=== PATIENT | female | born 1945 | race Caucasian/White ===

== ENCOUNTER → 2018-02-06 | Outpatient (CLI) | payer OTHER | LOC: BMCIMAGING 14:28 | PROVIDERS: ATTEND Internal Medicine | DX: Z12.31 Encounter for screening mammogram for malignant neoplasm of breast (principal); Z13.820 Encounter for screening for osteoporosis; M81.0 Age-related osteoporosis without current pathological fracture; E07.9 Disorder of thyroid, unspecified; Z78.0 Asymptomatic menopausal state ==

== ENCOUNTER 2018-10-08 11:21 | Outpatient (CLI) | payer OTHER ==
[2018-10-08] MEDS ORDERED: NS 1,000 ML IV SCH (12:30)
[2018-10-08] MEDS ORDERED: MIDAZOLAM 2 MG/2 ML VIAL IVP PRN (12:30)
[2018-10-08] MEDS ORDERED: MEPERIDINE 25 MG/ML SYR IVP PRN (12:30)
[2018-10-08] MEDS ORDERED: FLUMAZENIL 0.5 MG/5 ML MDV IVP PRN (12:30)
[2018-10-08] MEDS ORDERED: fentaNYL 100 MCG/2 ML INJ IVP PRN (12:30)
[2018-10-08] MEDS ORDERED: NALOXONE HCL 0.4 MG/ML INJ IVP PRN (12:30)
[2018-10-08] MEDS ORDERED: GADOBUTROL 10 ML VIAL IVP ONE (12:48)
--- NOTE | 2018-10-08 12:51 | PDGENHP ---
History & Physical Chief Complaint: MRI brain needed History of Present Illness: parkinson's dz pre DBS Cardiorespiratory Assessment: RRR, clear
--- NOTE | 2018-10-08 12:51 | PDPROPOC ---
Sedation Plan of Care Sedation Plan of Care: vital signs stable, mental status noted, patient educated of risks, benefits, alternatives, patient can tolerate sedation ASA Classification: ASA 2 Planned drugs: fentanyl, midazolam Mallampati Score: Class 1 Mallampati Reference Image: Patient passed 3-3-2 rule?: Yes
[2018-10-08 15:49] VITALS: BP 137/76
== END 2018-10-08 15:30 | disposition home or self-care (01) ==
LOC: FIMAGING 11:21
PROVIDERS: ATTEND Physician Assistant Surgical
DX: G31.9 Degenerative disease of nervous system, unspecified (principal); J34.1 Cyst and mucocele of nose and nasal sinus; G20 Parkinson's disease
CPT/HCPCS: 70552; A9585; J2250; J3010; 82565-PO; J2310

== ENCOUNTER 2018-11-13 05:31 | Inpatient (IN) | payer OTHER ==
--- NOTE | 2018-11-03 16:48 | GHP ---
[f rep st] PREOP HISTORY AND PHYSICAL DATE OF ADMISSION: 11/13/2018 HISTORY OF PRESENT ILLNESS: The patient is a 73-year-old female with Parkinson disease. She was william gnosed to have Parkinson's approximately 3-1/2 years ago. She did, however, begin having symptoms ap proximately a year prior to the time of her diagnosis. Her most bothersome symptom is her tremor. S he also has rigidity, stiffness, salivation, constipation, anosmia, and softened voice. She is takin g Sinemet but becomes symptomatic with this medication. She follows with Dr. Orantes. PAST MEDICAL HISTORY: Parkinson's, thyroid disorder. PAST SURGICAL HISTORY: Back surgery. SOCIAL HISTORY: Patient is retired and . Denies tobacco use. ALLERGIES: No known drug allergies. CURRENT HOME MEDICATIONS: Synthroid, estradiol, and Sinemet. REVIEW OF SYSTEMS: Negative except for what is mentioned in the HPI. FAMILY HISTORY: No pertinent neurosurgical family history. PHYSICAL EXAM: GENERAL: The patient appears to be in no apparent distress. Mood and affect are ana ropriate. Alert and oriented. HEENT: Pupils are equal and reactive. Extraocular movements are int act. Facial expression is symmetrical. MUSCULOSKELETAL: Muscle strength is well preserved in her u pper and lower extremities, 5/5, and sensation is intact to light touch. ASSESSMENT AND PLAN: In summary, the patient is a 73-year-old female with Parkinson disease. She mcallister s undergone a neuropsychological evaluation by Dr. Bales, as well on-off testing. She has been astrid med a suitable candidate to proceed with surgical intervention for her Parkinson disease with deep br ain stimulation. We will first begin by implanting the left STN lead for right body, and a month lat er, then proceed with right STN lead for the left body. The risks, benefits, and procedure were disc ussed in detail with the patient. The patient has elected to move forward with surgery and has maye d consents for left deep brain stimulation lead placement through the STN. /[id number]/MODL
[2018-11-13] MEDS ORDERED: CEFUROXIME 1,500 MG in NS 50 ML IV ONE (05:45)
[2018-11-13] MEDS ORDERED: LR 1,000 ML IV ONE (05:46)
[2018-11-13 06:17] LABS: PLATELET COUNT 266 10^3/uL (150-400)
[2018-11-13 06:25] LABS: INR 1.01 (0.83-1.16); PROTIME(PATIENT) 12.9 SEC (12.0-15.0)
[2018-11-13] MEDS ORDERED: CHLORHEXIDINE GLUC HIBICLENS 118 ML BTL TP ONE (06:26)
[2018-11-13] MEDS ORDERED: THROMBIN (BOVINE) 20,000 UNIT VIAL TP ONE (06:26)
[2018-11-13] MEDS ORDERED: BUPIVACAINE 0.25% 30 ML SDV ONE (06:26)
[2018-11-13] MEDS ORDERED: EPINEPHrine 1 MG/ML INJ ONE (06:27)
[2018-11-13] MEDS ORDERED: POVIDONE-IODINE 30 GM OINTTUBE TP ONE (06:27)
[2018-11-13] MEDS ORDERED: GENTAMICIN SULFATE 80 MG/2 ML VIAL ONE (06:27)
--- NOTE | 2018-11-13 06:58 | PDHPUP ---
History & Physical Update H&P update statement: This history and physical update is based on an assessment of the patient which was completed after admission or registration (within 24 hours), but prior to the surgery/procedure. H&P update: H&P reviewed & patient examined, no change in patient's condition since H&P completed
--- NOTE | 2018-11-13 07:05 | PDANEPAE ---
ANE History of Present Illness 73 yo for DBS ANE Past Medical History - Cardiovascular History Hx Hypertension: No Hx Arrhythmias: No Hx Chest Pain: No Hx Coronary Artery / Peripheral Vascular Disease: No Hx CHF / Valvular Disease: No Hx Palpitations: No - Pulmonary History Hx COPD: No Hx Asthma/Reactive Airway Disease: No Hx Recent Upper Respiratory Infection: No Hx Oxygen in Use at Home: No Hx Sleep Apnea: No Sleep Apnea Screening Result - Last Documented: Negative - Neurologic History Hx Cerebrovascular Accident: No Hx Seizures: No Hx Dementia: No Neurologic History Comment: parkinsons. tremor. dyskinesia - Endocrine History Hx Diabetes: No Endocrine History Comment: hypothyroidism - Renal History Hx Renal Disorders: No - Liver History Hx Hepatic Disorders: No - Neurological & Psychiatric Hx Hx Neurological and Psychiatric Disorders: No - Cancer History Hx Cancer: No - Congenital Disorder History Hx Congenital Disorders: No - GI History Hx Gastrointestinal Disorders: Yes Gastrointestinal History Comment: constipation. diarrhea - Other Health History Other Health History: rash on cheeks. bruises easily. wears glasses - Chronic Pain History Chronic Pain: No - Surgical History Prior Surgeries: back surgery in 2011. hysterectomy 1986 ANE Review of Systems Review of Systems: - Exercise capacity METS (RN): 4 METS ANE Patient History - Allergies Allergies/Adverse Reactions: No Known Allergies Allergy (Verified 11/02/18 16:01) - Home Medications Home medications: home medication list seen and reviewed Home Medications: Carbidopa-Levo 10-100 mg Odt 11/25/14 [Last Taken 11/12/18] Estradiol 11/25/14 [Last Taken 11/12/18] Synthroid 11/25/14 [Last Taken 11/12/18] Herbals/Supplements -Info Only 11/02/18 [Last Taken 11/03/18] - NPO status NPO Status: no food or drink >8 hours NPO Since - Liquids (Date): 11/13/18 NPO Since - Liquids (Time): 20:00 NPO Since - Solids (Date): 11/12/18 NPO Since - Solids (Time): 20:00 - Anes Hx Anes Hx: no prior problems - Smoking Hx Smoking Status: Never smoked - Family Anes Hx Family Hx Anesthesia Complications: none ANE Labs/Vital Signs - Labs Result Diagrams: 11/13/18 06:10 11/13/18 06:10 - Vital Signs Blood Pressure: 136/90 Heart Rate: 79 Respiratory Rate: 16 O2 Sat (%): 98 Height: 5 ft 7.5 in Weight: 47.174 kg ANE Physical Exam - Airway Neck exam: FROM Mallampati Score: Class 2 Mouth exam: normal dental/mouth exam - Pulmonary Pulmonary: no respiratory distress - Cardiovascular Cardiovascular: regular rate and rhythym - ASA Status ASA Status: II ANE Anesthesia Plan Anesthesia Plan: MAC
[2018-11-13] MEDS ORDERED: PROPOFOL/EMULSION 500 MG/50 ML BOTTLE IV ONE (07:27)
[2018-11-13] MEDS ORDERED: DEXMEDETOMIDINE HCL 400 MCG in NS 100 ML IV SCH (07:30)
[2018-11-13] MEDS ORDERED: fentaNYL 100 MCG/2 ML INJ ONE ×2 (07:50→11:44)
[2018-11-13] MEDS ORDERED: LIDOCAINE 2% JELLY 20 ML (UROJECT) ONE (07:53)
[2018-11-13] MEDS ORDERED: BISACODYL 10 MG SUPP PR PRN (09:03)
[2018-11-13] MEDS ORDERED: MAGNESIUM HYDROXIDE 30 ML UDCUP PO PRN (09:03)
[2018-11-13] MEDS ORDERED: LACTULOSE 20 GM/30 ML UDCUP PO PRN (09:03)
[2018-11-13] MEDS ORDERED: POLYETHYLENE GLYCOL 3350 17 GM PKT PO PRN (09:03)
[2018-11-13] MEDS ORDERED: ONDANSETRON 4 MG/2 ML VIAL IVP PRN ×2 (09:03→10:49)
[2018-11-13] MEDS ORDERED: ACETAMINOPHEN 325 MG TAB PO PRN ×2 (09:03→20:20)
[2018-11-13] MEDS ORDERED: HYDROCODONE/APAP 5/325 TAB PO PRN (09:06)
[2018-11-13] MEDS ORDERED: hydrALAZINE 20 MG/ML VIAL IVP PRN (09:06)
[2018-11-13] MEDS ORDERED: NS W/ 20 KCl/L 1,000 ML IV SCH (09:15)
--- NOTE | 2018-11-13 09:44 | PDMN ---
Medical Necessity Medical necessity: MCG: [facility] 1 day INPT only OP: crani- DBS auth- - [id number] APPROVED FOR INPT , [id number]
[2018-11-13] MEDS ORDERED: oxyCODONE IR 5 MG TAB PO PRN (10:49)
[2018-11-13] MEDS ORDERED: fentaNYL 100 MCG/2 ML INJ IVP PRN (10:49)
[2018-11-13] MEDS ORDERED: NALOXONE HCL 0.4 MG/ML INJ IVP PRN (10:49)
--- NOTE | 2018-11-13 11:17 | GOP ---
[f rep st] PREOP HISTORY AND PHYSICAL DATE OF ADMISSION: 11/13/2018 PREOPERATIVE DIAGNOSIS: Parkinson disease. POSTOPERATIVE DIAGNOSIS: Parkinson disease. PROCEDURE: 1. Right subthalamic nucleus deep brain stimulator lead placement with [employer] Jenny mead. 2. Impedances. CALL WORKER: Cortney Thorne PA-C. EBL: 10 mL. FLUIDS: 1200 mL crystalloid. URINE OUTPUT: None. DRAINS: None. SPECIMENS: None. COMPLICATIONS: None. INDICATIONS: This is a 73-year-old female with idiopathic Parkinson disease. She has been evaluated by a multidisciplinary team, found to be a good candidate for deep brain stimulator lead placement. We had placed the left deep brain stimulator lead first today. DESCRIPTION OF PROCEDURE: She was identified and consented. Sites were marked. Brought to the oper ating room, anesthetized under local with MAC. Hair was clipped with the OR clippers. Skin was isabel nsed with ChloraPrep. Pin sites were anesthetized with 0.25% Marcaine with epinephrine using povidon e iodine ointment on the pin sites. The Leksell frame was placed stereotactically. We then performe d a stereotactic spin with the O-arm to merge with the preoperative plan in the S8 frame link softwar e with an ACPC distance of 25.7, a target of X of -10.44, a Y of -2.76, a Z of -5.16. The entry poin t was an X of -44.11, Y of 35.93, Z of 59.2. This corresponded to 27.6 degrees off midsagittal, 59 d egrees off midaxial. This corresponded to Leksell frame coordinates of X of 113.5, Y of 98, a Z of 1 01, ring of 64 degrees, and arc 113.4 degrees. She was prepped and draped in the usual sterile fashi on. All Leksell frame coordinates were set and triple checked by all providers in the room. We marked the incision site with the cannula, then anesthetized a half-case incision, made a half-moo n incision with a 10 blade, elevated the periosteum with a periosteal elevator, used Layo clips, and then tunneled over to the right as we will place a right-sided generator ultimately. We then marked the bone incision, performed a fixed wing pilot hole, then a 14 mm bur hole, waxed the edges. Verified the bur hole was in the appropriate position. Placed the locking mechanism, screwed it into place, verified it clipped and locked, and opened the dura with an 11 blade. Introduced the cannula and internal st ylet, placed Gelfoam and DuraSeal around it. Performed microelectrode recordings. At this point in time, it was required to have an executive chef assistant as one person needed to remain scrubbed to manipulate the drive and the other person for testing. Please refer to HECTOR dictation by Cortney Thorne PA-C. We got good STN with motor driving at 3 above, out of acinar 0.14 above target. We macrostimmed and got good effect with no side effects. Elected to leave the lead here at approximately 1.14 above target based on the lead configuration. We then measured and placed the lead, tested the lead, and got low to no side effects with good stimulation effect. Took an x-ray with the bomb sites verified within the appropriate position. Performed a Stealth ster eotactic spin. We did have some impedance issues on the first 2 leads so this was the 3rd lead we pl aced. With the spin, took bomb sites. Placed the locking mechanism, clipped and locked it, removed the stylet. At that point, the lead had migrated so we completely removed the clip and we removed th e stylet. We measured and replaced the lead. Took an x-ray again. Had not migrated from the origin al position. Placed the locking mechanism, clipped and locked it, removed the stylet. It still had not migrated. Brought the lead down and out, placed it into the groove. It still had not migrated. Placed the cap. It still had not migrated under x-ray. Placed the end cap, locked into place with a torque wrench, and tunneled to the right, coiling the lead posterior and around the incision. The lead remained in its original position. Copiously irrigated with over 1 L of gentamicin-infused sali ne. Attempted to closed the galea with 2-0 Vicryl pop-offs. However, her galea was so thin, we requ ired a primary nylon closure. The wound was dressed with Xeroform and Telfa stapled down. The frame was removed. Head was wrapped. Patient tolerated the procedure well. No complications. /[id number]/MODL
--- NOTE | 2018-11-13 11:22 | GPN ---
[f rep st] PROCEDURE NOTE DATE OF PROCEDURE: 11/13/2018 PREPROCEDURE DIAGNOSIS: Parkinson disease. POSTPROCEDURE DIAGNOSIS: Parkinson disease. PROCEDURE PERFORMED: Intraoperative functional subcortical mapping by microelectrode recording and stimulation. COMPLICATIONS: None. INDICATIONS FOR PROCEDURE: Determination of optimal electrode lead placement for deep brain stimulation therapy for Parkinson disease to the STN. PROCEDURE: Following the incision on the left, a roro hole was drilled. The arc was then arranged with the following coordinates: X 113.5, Y 98.0, Z 101.0 , ring 64.0, arc 113.4. We elected to proceed with microelectrode recording with a center tract. There was evidence of cell bursts above target at 12.7, 10.6, and 9.2. There was evidence of entering STN at 5.0 above target with change in recording with elbow extension at 3.0 above target. We entered SNR at 0.14 above target. We then proceeded with macro stimulation at 3 above target. Patient had no side effects up to 4.0 with improved bradykinesia. With this microelectrode recording, we elected to place the lead at its location using the center tract with the bottom of the lead at 1.14 above target. Proceeding with test stimulation, patient had no side effects up to 3.0 with a slight improvement in bradykinesia at 1- and level 2+ . At level 2- and level 3+, patient had no side effects up to 2.0 with improved bradykinesia. At level 3- and level 4+ , patient had no side effects up to 2.0 with improved bradykinesia. At the level 4- and level 3+, patient had no side effects up to 2.0. With this microelectrode recording, as well as test stimulation, we elected to place the lead at this location with the bottom of the lead at 1.14 above target. The patient tolerated the surgery well. /[id number]/MODL MTDD
--- NOTE | 2018-11-13 11:35 | POSTOPPROG ---
Post Op Note Date of Operation: 11/13/18 Surgeon: Hellen Ricks Site Surveyor: Priscilla Thorne PA-C Anesthesia: IV Sedation, Local (Specify) Pre-op Diagnosis: Parkinson's disease Post-op Diagnosis: Parkinson's disease Procedure: Left STN DBS lead placement Inf/Abcess present in the surg proc area at time of surgery?: No Depth: Deep Incisional (Fascial) EBL: Minimal Plan Plan: 73 yo female s/p left STN DBS lead placement for Parkinson's - neuro checks - pain control - postop head CT pending - maintain SBP < 140 - PT/OT - plan for home tomorrow Exam Patient seen in recovery Awake. Alert Following commands Incision with dressing c/d/i
--- NOTE | 2018-11-13 12:26 | POSTANESTH ---
Post Anesthetic Evaluation Cardiovascular Status: Normal, Stable Respiratory Status: Normal, Stable Level of Consciousness/Mental Status: Can Participate in Eval Pain Control: Adequate, Prn Tx Ordered Nausea/Vomiting Control: Adequate, Prn Tx Ordered Complications Possibly Related to Anesthesia: None Noted
--- NOTE | 2018-11-13 16:56 | ASMTCMCOM ---
CM Note CM Note Notes: Pt is s/p crani deep brain stimulation for Parkinson's Disease. PT/OT evals are pending. Pt lives in [place]. CM will follow for any d/c needs. D/C plan: TBD Date Signed: 11/13/2018 04:55 PM Electronically Signed By:NATY Zimmerman
[2018-11-13] MEDS: CEFUROXIME 1,500 MG in NS 50 ML IV SCH (17:57)
[2018-11-13] MEDS: SENNOSIDES/DOCUSATE SODIUM TAB PO SCH (20:18)
[2018-11-13] MEDS ORDERED: ESTRADIOL 0.5 MG TAB PO SCH (21:00)
[2018-11-13] MEDS: CARBIDOPA/LEVODOPA 25 MG/100 MG TAB PO SCH (23:19)
[2018-11-14] MEDS: CEFUROXIME 1,500 MG in NS 50 ML IV SCH (00:12)
[2018-11-14] MEDS ORDERED: LEVOTHYROXINE 75 MCG TAB PO SCH (06:00)
[2018-11-14] MEDS: CARBIDOPA/LEVODOPA 25 MG/100 MG TAB PO SCH ×2 (06:02→10:26)
[2018-11-14 07:38] VITALS: BP 133/73
--- NOTE | 2018-11-14 09:42 | NEUSURGPN ---
Assessment/Plan: Plan Plan: 73 yo female s/p left STN DBS lead placement for Parkinson's - Neuro:Doing well, denies headache, ambulating well - pain control - postop head CT looks good, no acute bleed -May remove dressing -May shower tomorrow 11/15 - maintain SBP < 140 - PT/OT - plan for home this afternoon S: Patient doing well, denies headache. Eager to go home. Objective: Awake. Alert Dressing in place CN II-XII grossly intact PERRL, EOMI Following commands BUE/BLE 12/20 SILT Catheter Insertion Date: 11/13/18 - Physician Discussed Patient with DrPrabhu: [facility] Physical Exam - Vitals, I&O, Labs I and O 11/13/18 11/14/18 11/15/18 05:59 05:59 05:59 Intake Total 2965 Output Total 1700 Balance 1265 Weight 47.174 kg Intake: Oral (ml) 610 IV Intake (ml) 1300 IV Infused (ml) 1055 Cefuroxime 1,500 mg In Ns 50 50 ml @ 200 mls/hr IV Q8H ALESIA Rx#:[id number] NS W/ 20 KCl/L 1,000 ml @ 1005 75 mls/hr IV CONT ALESIA Rx #:[id number] Output: Urine (ml) 1650 Catheter 1650 Estimated Blood Loss (ml) 50 Other: Intake Quantity Yes Sufficient Vital Signs Temp Pulse Resp BP Pulse Ox 36.7 C 73 18 133/73 H 93 11/14/18 07:37 11/14/18 07:37 11/14/18 07:37 11/14/18 07:37 11/14/18 07:37 Laboratory Results 11/13/18 06:10 11/13/18 06:10 ICD10 Worksheet Patient Problems: Problems Problem Status Onset Parkinsons Acute - ICD10 Problem Qualifiers (1) Parkinsons
--- NOTE | 2018-11-14 10:12 | ASDISCHSUM ---
Discharge Information Plan Status:Home with No Needs Medically Cleared to Leave: Discharge Date: D/C Disposition:Home Health Service [facility] D[facility]C Disposition:Home, Routine, Self-Care Projected Discharge Date: Transportation at D/C:Family Discharge Delay Reason: Follow-Up Date: Discharge Slot: Final Diagnosis: Placement Information Patient Contact Information Contact Name:JAVONDENNISWOLFKATJA Relationship:Benjy Address: [phone] City:[place] Alternate Phone: [facility] Code:[place] Email: Financial Information Financial Class:Medicare Advantage Plans Primary Plan Desc:[facility] ADVANTAGE PLANS Primary Plan Number:[id number] Secondary Plan Desc: Secondary Plan Number: Assessment Information [facility] CM Progress Note CM Note CM Note Notes: Pt is s/p crani deep brain stimulation for Parkinson's Disease. PT/OT evals are pending. Pt lives in [place]. CM will follow for any d/c needs. D/C plan: TBD Date Signed: 11/13/2018 04:55 PM Electronically Signed By:NATY Zimmerman LACE LACE Length of stay for Answers: 1 day current admission Acuity / Level of Answers: Yes Care: Did the patient have an inpatient admission? # of Emergency department Answers: 0 visits in the last 6 months Score: 4 Date Signed: 11/14/2018 10:11 AM Electronically Signed By:Wendy Reddy Intervention Information
[2018-11-14] MEDS: SENNOSIDES/DOCUSATE SODIUM TAB PO SCH ×2 (10:26→10:33)
[2018-11-16] MEDS ORDERED: ENOXAPARIN 40 MG/0.4 ML SYR SC SCH (09:00)
--- NOTE | 2018-11-19 09:40 | GDS ---
[f rep st] DISCHARGE SUMMARY ADMISSION DIAGNOSIS: Parkinson disease. DISCHARGE DIAGNOSIS: Parkinson disease. PROCEDURE: Left subthalamic nucleus deep brain stimulator lead placement for Parkinson. CONSULTS: Physical and Occupational therapy. HOSPITAL COURSE: The patient is a 73-year-old female who presented to the hospital to proceed with D BS surgery for treatment for Parkinson disease. She underwent surgery by Dr. Hellen Ricks on October 17 with placement of the left STN deep brain stimulator lead. She tolerated the surgery well withou t any complications. She was transferred to the floor. Postop head CT showed no acute intracranial hemorrhage. On the following day, she was tolerating a diet, voiding without difficulty, pain contro lled, and she was medically stable, and she was deemed suitable for discharge. She was discharged to home on November 14. DISCHARGE MEDICATIONS: [place] 5/325 mg take as needed as needed for pain. DISCHARGE INSTRUCTIONS: Patient was asked to refrain from showering for 3 days. She needs to avoid strenuous activity, such as lifting more than 10 pounds. The patient will follow up with Dr. Hellen betancourt in 2 weeks. /[id number]/MODL
== END 2018-11-14 12:10 | disposition home or self-care (01) | DRG 27 ==
LOC: F3N 05:31 → EDSTATUS 07:15 → F3N 12:22
PROVIDERS: ADMIT Neurological Surgery; ATTEND Neurological Surgery
PROC: 00H00MZ Insertion of Neurostimulator Lead into Brain, Open Approach (ICD-10-PCS; principal; 2018-11-13 07:15)
DX: G20 Parkinson's disease (principal); E03.9 Hypothyroidism, unspecified
CPT/HCPCS: 97161-GP; 97165-GO; C1713; C1778; C1883; J0171; J0360; J0697; J1580; J2405; J2704; J3010

== ENCOUNTER 2018-12-11 05:54 | Inpatient (IN) | payer OTHER ==
[2018-12-11] MEDS ORDERED: CEFUROXIME 1,500 MG in NS 50 ML IV ONE (06:00)
[2018-12-11] MEDS ORDERED: LR 1,000 ML IV ONE (06:10)
[2018-12-11] MEDS ORDERED: THROMBIN (BOVINE) 20,000 UNIT VIAL TP ONE (06:37)
[2018-12-11] MEDS ORDERED: CHLORHEXIDINE GLUC HIBICLENS 118 ML BTL TP ONE (06:37)
[2018-12-11] MEDS ORDERED: POVIDONE-IODINE 30 GM OINTTUBE TP ONE (06:38)
[2018-12-11] MEDS ORDERED: BUPIVACAINE/EPI 0.25% 30 ML SDV ONE (06:38)
[2018-12-11] MEDS ORDERED: GENTAMICIN SULFATE 80 MG/2 ML VIAL ONE (06:38)
--- NOTE | 2018-12-11 06:49 | PDANEPAE ---
ANE History of Present Illness here for DBS placement ANE Past Medical History - Cardiovascular History Hx Hypertension: No Hx Arrhythmias: No Hx Chest Pain: No Hx Coronary Artery / Peripheral Vascular Disease: No Hx CHF / Valvular Disease: No Hx Palpitations: No - Pulmonary History Hx COPD: No Hx Asthma/Reactive Airway Disease: No Hx Recent Upper Respiratory Infection: No Hx Oxygen in Use at Home: No Hx Sleep Apnea: No Sleep Apnea Screening Result - Last Documented: Negative - Neurologic History Hx Cerebrovascular Accident: No Hx Seizures: No Hx Dementia: No Neurologic History Comment: parkinson's 5-6 years, tremor, dyskinesia - Endocrine History Hx Diabetes: Yes Endocrine History Comment: hypothyroid - Renal History Hx Renal Disorders: No - Liver History Hx Hepatic Disorders: No - Neurological & Psychiatric Hx Hx Neurological and Psychiatric Disorders: No Neurological / Psychiatric History Comment: parkinson's - Cancer History Hx Cancer: No - Congenital Disorder History Hx Congenital Disorders: No - GI History Hx Gastrointestinal Disorders: Yes Gastrointestinal History Comment: occ diarrhea - Other Health History Other Health History: osteo arthritis, cervical degenerative disk disease, edema , rash on cheeks, bruises easily - Chronic Pain History Chronic Pain: Yes (neck) - Surgical History Prior Surgeries: left dbs lead placement 11/13/18. back surgery in 2011, hysterectomy 1986 ANE Review of Systems Review of systems is: negative Review of Systems: - Exercise capacity Exercise capacity: >=4 METS METS (RN): 3 METS ANE Patient History - Allergies Allergies/Adverse Reactions: No Known Allergies Allergy (Verified 12/07/18 09:45) - Home Medications Home medications: home medication list seen and reviewed Home Medications: Carbidopa/Levodopa 25/100Mg [Sinemet 25/100 MG (*)] 2 tab PO Q4HRS WHILE AWAKE 11/25/14 [Last Taken 12/10/18 20:00] Estradiol [Estradiol 1 MG (*)] 0.5 mg PO HS 11/25/14 [Last Taken 12/10/18 21:00] Levothyroxine [Synthroid 75 mcg (*)] 75 mcg PO DAILY06 11/25/14 [Last Taken 21:00] Acetaminophen [Tylenol 325mg (*)] 325 mg PO DAILY PRN 11/13/18 [Last Taken 12/10 15:00] - NPO status NPO Status: no food or drink >8 hours NPO Since - Liquids (Date): 12/10/18 NPO Since - Liquids (Time): 21:00 NPO Since - Solids (Date): 12/10/18 NPO Since - Solids (Time): 21:00 - Smoking Hx Smoking Status: Never smoked - Family Anes Hx Family Hx Anesthesia Complications: none ANE Labs/Vital Signs - Vital Signs Vital Signs: reviewed preoperatively; see RN documention for details Blood Pressure: 165/90 Heart Rate: 78 Respiratory Rate: 16 O2 Sat (%): 95 Height: 171.45 cm Weight: 47.627 kg ANE Physical Exam - Airway Neck exam: FROM Mallampati Score: Class 1 Mouth exam: normal dental/mouth exam - Pulmonary Pulmonary: no respiratory distress - Cardiovascular Cardiovascular: regular rate and rhythym - ASA Status ASA Status: II ANE Anesthesia Plan Anesthesia Plan: GA with mask Lines/Monitors: arterial line
[2018-12-11] MEDS ORDERED: DEXMEDETOMIDINE HCL 400 MCG in NS 100 ML IV SCH (07:00)
[2018-12-11] MEDS ORDERED: PROPOFOL/EMULSION 500 MG/50 ML BOTTLE IV ONE ×2 (07:16→08:48)
[2018-12-11] MEDS ORDERED: LABETALOL HCL 5 MG/ML 20 ML MDV IVP PRN (08:30)
[2018-12-11] MEDS ORDERED: ONDANSETRON 4 MG/2 ML VIAL IVP PRN ×2 (08:30→08:57)
[2018-12-11] MEDS ORDERED: ALBUTEROL 3 ML DEYVIAL IH PRN (08:30)
[2018-12-11] MEDS ORDERED: NALOXONE HCL 0.4 MG/ML INJ IVP PRN (08:30)
[2018-12-11] MEDS ORDERED: LR 500 ML IV PRN (08:30)
[2018-12-11] MEDS ORDERED: fentaNYL 100 MCG/2 ML INJ IVP PRN (08:30)
[2018-12-11] MEDS ORDERED: HYDROmorphONE/DILAUDID 1 MG/ML INJ IVP PRN (08:30)
[2018-12-11] MEDS ORDERED: DEXAMETHASONE 4 MG/ML VIAL IVP PRN (08:30)
[2018-12-11] MEDS ORDERED: MAGNESIUM HYDROXIDE 30 ML UDCUP PO PRN (08:57)
[2018-12-11] MEDS ORDERED: BISACODYL 10 MG SUPP PR PRN (08:57)
[2018-12-11] MEDS ORDERED: LACTULOSE 20 GM/30 ML UDCUP PO PRN (08:57)
[2018-12-11] MEDS ORDERED: ACETAMINOPHEN 325 MG TAB PO PRN (08:57)
[2018-12-11] MEDS ORDERED: POLYETHYLENE GLYCOL 3350 17 GM PKT PO PRN (08:57)
[2018-12-11] MEDS ORDERED: HYDROCODONE/APAP 5/325 TAB PO PRN (09:00)
[2018-12-11] MEDS ORDERED: NS W/ 20 KCl/L 1,000 ML IV SCH (09:00)
[2018-12-11] MEDS ORDERED: hydrALAZINE 20 MG/ML VIAL IVP PRN (09:00)
[2018-12-11] MEDS ORDERED: AVITENE POWDER 1 GM JAR TP ONE (09:03)
--- NOTE | 2018-12-11 11:23 | GOP ---
[f rep st] PREOP HISTORY AND PHYSICAL DATE OF ADMISSION: 12/11/2018 PREOPERATIVE DIAGNOSIS: Parkinson disease. POSTOPERATIVE DIAGNOSIS: Parkinson disease. PROCEDURE: 1. Left deep brain stimulator lead placement with a [employer] directional lead. 2. Stealth. SURGEON: Hellen Ricks DO. AXLE AND FRAME MECHANIC: Cortney Thorne PA-C. EBL: 20 mL. FLUIDS: 1100 mL crystalloid. URINE OUTPUT: Not recorded. DRAINS: None. SPECIMENS: None. COMPLICATIONS: None. INDICATIONS: This is a 73-year-old female who has her right deep brain stimulator lead placed, and r eturns for the left deep brain stimulator lead placement for her Parkinson disease with [employer] directional lead. DESCRIPTION OF PROCEDURE: She was identified, consented. Sites were marked. Brought to the operati ng room. Anesthetized under local with MAC. Hair was clipped with the OR clippers. Head was cleans ed with ChloraPrep, placing povidone iodine on the pin sites, and anesthetizing the pin sites with 0. 5% Marcaine with epinephrine. We placed the [place] frame stereotactically, performed a stereotactic spin with the O-arm 2 and the localizer box, merging it with the preoperative plan in the Nano[employer] 8 frame link software. We then mirrored the lead on her opposite side, and the coordinates were an ACP C distance of 26.37, an X of 10.37, a Y of -3.07, a Z of -3.64, and entry point of X of 39.650, Y of 35.53, and Z of 65.22. This corresponded to 23 degrees off midsagittal and 60.7 degrees off midaxial . This corresponded to Leksell frame coordinates of an X of 91, a Y of 100.5, a Z of 99.5, a ring of 69 degrees, and an arc of 68.4 degrees. She was prepped and draped in the usual sterile fashion. T hese were set and triple checked by all providers in the room. We then marked a half-case shaped inc ision using the cannula, and this was anesthetized with 0.5% Marcaine with epinephrine. Incision was made with a 10 blade, and the periosteum was elevated with periosteal elevator. We then marked the bone incision using the cannula, and then performed a towboat pilot hole, then a 14 mm bur hole bur. Meticul ous hemostasis was obtained, and the bone edges were waxed. We then verified it was in good position , and then placed the lead locking device and verified that it clipped and locked. I screwed it down with the screws that were available and verified that it clipped and locked. We then opened the dur a sharply with an 11 blade, and inserted the cannula and stylet single tract, placed Gelfoam and Dura Seal, and placed a microelectrode. Please refer to dictation by Cortney Thorne for microelectrode r ecording. Cortney Thorne was required for assistance in this situation as 1 person needed to remain scrubbed to manipulate the lead and 1 person needed to remain unscrubbed for HECTOR. We performed HECTOR. We got some stimulus about 12 above, however, we got clearly into the STN at 3-1/2 above target and out approximately 1.3 mm below target. She was significantly sedated despite waiting a market amoun t, so testing was somewhat difficult. However, we did macro stim in the middle of the STN, and got n o side effects. Elected to place the lead here with the bottom of the bottom contact at approximatel y 1 mm below target. This was driven. The microelectrode was removed. The lead was measured and ma rked in place. We then tested each contact. All impedances were good with the exception of the 3 mcallister d a slightly high tissue impedance that was decreasing, and expect that this is a true tissue impedan ce. We then tested each of the contacts. We had low to no side effects to the extent that we could test for stimulation effect. We were able to get some improvement in bradykinesia. There was no lucinda mor to test on this side. At that point in time, we elected to leave the lead here, took an an x-ray with the bomb sites. We then performed a stereotactic spin, merging into the Stealth S8, and we had excellent accuracy with almost no significant deviation. We then retracted the stylet, locked the c lipping mechanism, and brought the internal stylet out, brought the lead down and out, placing it int o the groove, placing the cap, took another x-ray. It had not migrated. Placed the cap over the rupali d extension tip, and locked into place with a torque wrench tunneling a posterior, and putting it nex t to the lead that had been tunneled over from the other side, coiling the wires posterior and around , the incision copiously irrigated with over a liter of gentamicin-infused saline. Closed the galea with 2-0 Vicryl pop-offs. The skin was closed with 3-0 running nylon. The wound was dressed with Xe roform and Telfa. We then removed the frame. Head was wrapped, and the patient tolerated procedure well. No complications. /[id number]/MODL
[2018-12-11] MEDS ORDERED: fentaNYL 100 MCG/2 ML INJ ONE (11:41)
[2018-12-11] MEDS ORDERED: hydrALAZINE 20 MG/ML VIAL ONE (12:02)
--- NOTE | 2018-12-11 12:03 | PDMN ---
Medical Necessity Medical necessity: Pt meets inpt criteria per MD order and Neurosurgery GRG, [facility] IP only list, implantation of neurostimulator electrode. 73 y/o w/Parkinson's disease admitted for L deep brain stimulator lead placement and post-op care. R deep brain stimulator placed 11/13/18. AUTH# [id number] pre-approved for inpt.
[2018-12-11] MEDS: SENNOSIDES/DOCUSATE SODIUM TAB PO SCH ×2 (12:56→21:38)
--- NOTE | 2018-12-11 13:24 | POSTOPPROG ---
Post Op Note Date of Operation: 12/11/18 Surgeon: Hellen Ricks Architect Internship: Cortney Thorne PA-C Anesthesiologist: Dr. Rosas Anesthesia: IV Sedation, Local (Specify) Pre-op Diagnosis: Parkinson's Post-op Diagnosis: Parkinson's Procedure: Right STN DBS lead placement Inf/Abcess present in the surg proc area at time of surgery?: No Depth: Superfical (Skin SQ) EBL: Minimal Plan Plan: 73 yo female s/p right STN DBS lead placement for Parkinson's - neuro checks - pain control - postop head CT stable - maintain SBP < 140 - PT/OT - plan to discharge home tomorrow
--- NOTE | 2018-12-11 14:14 | GPN ---
[f rep st] PROCEDURE NOTE DATE OF PROCEDURE: 12/11/2018 PREPROCEDURE DIAGNOSIS: Parkinson disease. POSTPROCEDURE DIAGNOSIS: Parkinson disease. PROCEDURE PERFORMED: Intraoperative functional subcortical mapping by microelectrode recording and s timulation. COMPLICATIONS: None. INDICATIONS FOR PROCEDURE: Determination of optimal electrode lead placement for deep brain stimulat ion therapy for Parkinson disease to the STN. DESCRIPTION OF PROCEDURE: Following the incision on the right, a roro hole was drilled. The arc was then arranged with the following coordinates: X 91, Y 100.5, Z 99.5, ring 69.0, arc of 68.4. We el ected to proceed with microelectrode recording with a center tract. There was evidence of cell burst s above target at 19,17, 15, and 14. There was evidence of entering STN at 3.5 above target and exit ing STN at 1.3 below target. We then proceeded with macro stimulation at 1 above target and the aleshia ent experienced no side effects up to 4.0. We then elected to proceed with placement of the lead and proceed with test stimulation. At level 1-, 2+, patient had no side effects up to 3.0. At level 2- , 3+, patient had no side effects up to 3.0 with some improved bradykinesia. At level 3-, 4+, patien t had no side effects up to 3.0 with improved bradykinesia. At level 4-, 3+, patient had no side eff ects up to 3.0. With this microelectrode recording, as well as test stimulation, we elected to place the lead at this location with the bottom of the lead at 1 below target. The patient tolerated the surgery well without complication and was transferred to the floor.. /[id number]/MODL
[2018-12-11] MEDS: CEFUROXIME 1,500 MG in NS 50 ML IV SCH ×2 (14:19→21:41)
[2018-12-11] MEDS: CARBIDOPA/LEVODOPA 25 MG/100 MG TAB PO SCH ×3 (14:19→21:38)
[2018-12-11] MEDS ORDERED: ESTRADIOL 1 MG TAB PO SCH (21:00)
[2018-12-12] MEDS: CARBIDOPA/LEVODOPA 25 MG/100 MG TAB PO SCH ×3 (06:16→11:24)
[2018-12-12] MEDS: LEVOTHYROXINE 75 MCG TAB PO SCH ×2 (06:16→07:00)
--- NOTE | 2018-12-12 07:46 | SOAPPROG ---
SOAP Progress Note Assessment/Plan: Assessment: 73 yo F POD #1 DBS lead placement Plan: neuro: stable episode of confusion that resolved this morning Head CT 12/12 w/o hemorrhage, stable pneumocephalus PT/OT ok to dc when dizzyness improved please call with neuro changes discussed with Dr Sheehan 12/12/18 07:44 Subjective: mild headache, no N/V. no weakness. Objective: Vital Signs Temp Pulse Resp BP Pulse Ox 36.4 C 70 16 141/95 H 95 12/12/18 07:02 12/12/18 07:02 12/12/18 07:02 12/12/18 07:02 12/12/18 07:02 12/11/18 12/12/18 12/13/18 05:59 05:59 05:59 Intake Total 1570 50 Output Total 820 Balance 750 50 AAOX4, +FC PERRL, EOMI, no facial droop 5/5 + light touch C/D/I ICD10 Worksheet Patient Problems: Problems Problem Status Onset Parkinsons Acute
[2018-12-12] MEDS: SENNOSIDES/DOCUSATE SODIUM TAB PO SCH (08:13)
[2018-12-12 13:20] VITALS: BP 110/64
--- NOTE | 2018-12-12 13:26 | ASMTLACE ---
LACE Length of stay for Answers: 2 days current admission Acuity / Level of Answers: Yes Care: Did the patient have an inpatient admission? Comorbidities - select Answers: Diabetes (uncontrolled or all that apply controlled) Opioid dependence / Chronic pain Other Notes: Parkinson's disease # of Emergency department Answers: 0 visits in the last 6 months Score: 11 Date Signed: 12/12/2018 01:25 PM Electronically Signed By:NATY Leon
--- NOTE | 2018-12-12 14:42 | ASMTCMCOM ---
CM Note CM Note Notes: Pt had DBS placement, has had R DBS placement before. Pt has family local and resides alone. Pt medically stable for d/c, no CM d/c needs identified. Date Signed: 12/12/2018 02:42 PM Electronically Signed By:NATY Leon
== END 2018-12-12 13:24 | disposition home or self-care (01) | DRG 27 ==
LOC: FSGY 05:54 → F3E 08:57 → F3N 12:50
PROVIDERS: ADMIT Neurological Surgery; ATTEND Neurological Surgery
PROC: 00H00MZ Insertion of Neurostimulator Lead into Brain, Open Approach (ICD-10-PCS; principal; 2018-12-11 07:30)
DX: G20 Parkinson's disease (principal); E03.9 Hypothyroidism, unspecified
CPT/HCPCS: 97165-GO; C1713; C1778; C1883; J0360; J0697; J1580; J2405; J2704; J3010

== ENCOUNTER 2019-01-01 05:42 | Day surgery (SDC) | payer OTHER ==
[2019-01-01] MEDS ORDERED: ACETAMINOPHEN 500 MG TAB PO ONE (05:56)
[2019-01-01] MEDS ORDERED: ceFAZolin 2 GM/DEXTROSE 100 ML IV ONE (05:56)
[2019-01-01] MEDS ORDERED: LR 1,000 ML IV ONE (05:57)
--- NOTE | 2019-01-01 06:53 | PDANEPAE ---
ANE History of Present Illness For stage 2 deep brain stimulator implant for Parkinson ANE Past Medical History - Cardiovascular History Hx Hypertension: No Hx Arrhythmias: No Hx Chest Pain: No Hx Coronary Artery / Peripheral Vascular Disease: No Hx CHF / Valvular Disease: No Hx Palpitations: No - Pulmonary History Hx COPD: No Hx Asthma/Reactive Airway Disease: No Hx Recent Upper Respiratory Infection: No Hx Oxygen in Use at Home: No Hx Sleep Apnea: No Sleep Apnea Screening Result - Last Documented: Negative - Neurologic History Hx Cerebrovascular Accident: No Hx Seizures: No Hx Dementia: No Neurologic History Comment: parkinsons. tremor. dyskinesia. cervical degenerative disk disease - Endocrine History Hx Diabetes: No Endocrine History Comment: hypothyroidism - Renal History Hx Renal Disorders: No - Liver History Hx Hepatic Disorders: No - Neurological & Psychiatric Hx Hx Neurological and Psychiatric Disorders: No Neurological / Psychiatric History Comment: parkinson's - Cancer History Hx Cancer: No - Congenital Disorder History Hx Congenital Disorders: No - GI History Hx Gastrointestinal Disorders: Yes Gastrointestinal History Comment: occ diarrhea - Other Health History Other Health History: wears glasses. bruises easily - Chronic Pain History Chronic Pain: Yes (neck) - Surgical History Prior Surgeries: 12/11/18 DBS lead placement- right. 11/13/18 DBS lead placement- left. back surgery in 2011. hysterectomy 1986 ANE Review of Systems Review of Systems: - Exercise capacity METS (RN): 4 METS ANE Patient History - Allergies Allergies/Adverse Reactions: No Known Allergies Allergy (Verified 12/18/18 09:06) - Home Medications Home medications: home medication list seen and reviewed Home Medications: Carbidopa/Levodopa 25/100Mg [Sinemet 25/100 MG (*)] Q4HRS WHILE AWAKE 11/25/14 [ Last Taken 01/01/19 06:00] Estradiol [Estradiol 1 MG (*)] 1 mg PO HS 11/25/14 [Last Taken 12/31/18 20:00] Levothyroxine [Synthroid 75 mcg (*)] 75 mcg PO DAILY 11/25/14 [Last Taken 04:00] Acetaminophen [Tylenol 325mg (*)] Q4HRS PRN 12/18/18 [Last Taken 12/30/18] Multivitamin 1 tab PO DAILY 01/01/19 [Last Taken 12/25/18] - NPO status NPO Since - Liquids (Date): 12/31/18 NPO Since - Liquids (Time): 20:00 NPO Since - Solids (Date): 12/31/18 NPO Since - Solids (Time): 18:30 - Anes Hx Anes Hx: no prior problems, post operative nausea and vomiting - Smoking Hx Smoking Status: Never smoked - Family Anes Hx Family Hx Anesthesia Complications: none ANE Labs/Vital Signs - Vital Signs Blood Pressure: 143/72 Heart Rate: 64 Respiratory Rate: 18 O2 Sat (%): 99 Height: 171.45 cm Weight: 47.627 kg ANE Physical Exam - Airway Neck exam: FROM Mallampati Score: Class 1 Mouth exam: normal dental/mouth exam - Pulmonary Pulmonary: no respiratory distress - Cardiovascular Cardiovascular: regular rate and rhythym - ASA Status ASA Status: II ANE Anesthesia Plan Anesthesia Plan: general endotracheal anesthesia
[2019-01-01] MEDS ORDERED: CHLORHEXIDINE GLUC HIBICLENS 118 ML BTL TP ONE (07:04)
[2019-01-01] MEDS ORDERED: LIDOCAINE 1% 300 MG/30 ML SDV ONE (07:05)
[2019-01-01] MEDS ORDERED: BUPIVACAINE/EPI 0.25% 30 ML SDV ONE (07:05)
[2019-01-01] MEDS ORDERED: GENTAMICIN SULFATE 80 MG/2 ML VIAL ONE (07:05)
[2019-01-01] MEDS ORDERED: LIDOCAINE 2% 5 ML SDV ONE (07:24)
[2019-01-01] MEDS ORDERED: ROCURONIUM 50 MG/5 ML VIAL ONE (07:24)
[2019-01-01] MEDS ORDERED: fentaNYL 100 MCG/2 ML INJ ONE ×3 (07:25→09:44)
[2019-01-01] MEDS ORDERED: PROPOFOL 200 MG/20 ML VIAL ONE (07:25)
[2019-01-01] MEDS ORDERED: DEXAMETHASONE 4 MG/ML VIAL ONE (07:38)
[2019-01-01] MEDS ORDERED: ONDANSETRON 4 MG/2 ML VIAL ONE ×2 (07:39→10:08)
[2019-01-01] MEDS ORDERED: PHENYLEPHRINE HCL 100 MCG/ML SYR ONE (07:46)
[2019-01-01] MEDS ORDERED: NALOXONE HCL 0.4 MG/ML INJ IVP PRN (08:04)
[2019-01-01] MEDS ORDERED: ONDANSETRON 4 MG/2 ML VIAL IVP PRN (08:04)
[2019-01-01] MEDS ORDERED: SUGAMMADEX SODIUM 200 MG/2 ML VIAL IVP ONE (08:26)
--- NOTE | 2019-01-01 08:55 | POSTANESTH ---
Post Anesthetic Evaluation Cardiovascular Status: Similar to Pre-Op Cond Respiratory Status: Similar to Pre-op Cond. Level of Consciousness/Mental Status: Alert and Oriented, Mildly Sleepy, Arousable Pain Control: Adequate, Prn Tx Ordered Nausea/Vomiting Control: Adequate, Prn Tx Ordered Complications Possibly Related to Anesthesia: None Noted
--- NOTE | 2019-01-01 08:55 | POSTOPPROG ---
Post Op Note Date of Operation: 01/01/19 Surgeon: Hellen Ricks Transportation Broker: Cortney Thorne PA-C Anesthesia: GET(General Endotracheal) Pre-op Diagnosis: Parkinson's Post-op Diagnosis: Parkinson's Procedure: Implant of DBS generator to right chest wall Inf/Abcess present in the surg proc area at time of surgery?: No Depth: Deep Incisional (Fascial) EBL: Minimal Plan Plan: 73 yo female s/p placement of right DBS generator to the chest wall - neuro checks - pain control - advance diet - dc home today
[2019-01-01] MEDS ORDERED: HYDROCODONE/APAP 5/325 TAB PO PRN (08:57)
--- NOTE | 2019-01-01 08:59 | GOP ---
[f rep st] OPERATIVE REPORT DATE OF OPERATION: SURGEON: Hellen Ricks DO NEUROSURGEON: Hellen Ricks DO [facility]HW[address] LANDSCAPE ARCHITECT: SELIN Jauregui PREOPERATIVE DIAGNOSIS: Parkinson disease. POSTOPERATIVE DIAGNOSIS: Parkinson disease. PROCEDURE PERFORMED: 1. Placement of right deep brain stimulator generator with [employer] generator connect ion to indwelling bilateral subthalamic nucleus/deep brain stimulation leads. 2. Impedances. FINDINGS: SPECIMENS: None. ESTIMATED BLOOD LOSS: 50 mL. INDICATIONS: This is a 73-year-old female with bilateral deep brain stimulator leads, who returns fo r her generator placement. DESCRIPTION OF PROCEDURE: She was identified, consented. Sites were marked. Brought to the operati ng room. Anesthetized under general endotracheal tube anesthesia. Hair was clipped with the OR clip pers. Incision sites were marked. She was prepped and draped in the usual sterile fashion. Incisio n at the chest wall was anesthetized with 0.25% Marcaine with epinephrine. Incision was made with a 10 blade just over the lead extension complexes and they were dissected out. An incision was made at the chest wall with a 10 blade. She is so thin that a submuscular pocket was created using Metzenba um scissors and blunt dissection. We then tunneled from the head down to the chest wall in a single pass, passed the extensions down, removed the Passer straw, removed the lead extension caps and gentl y dried the leads, placed them in the extension, placed the leads into the generator in the appropria te configuration, checked impedances. All impedances were good. Locked the set screws with a torque wrench. All impedances were good. Placed the lead extension complex flat against the skull plate. Coiled the wires posterior to the generator. Sutured it to the chest wall with 2-0 silk stitch at 2 positions. Copiously irrigated each incision with over a liter of gentamicin-infused saline. Close d the galea with 2-0 Vicryl pop-offs and the skin with 3-0 running nylon at the chest wall. Closed t he fascia with 2-0 Vicryl pop-offs, subcutaneous layer with 3-0 Vicryl pop-offs. The skin was closed with 4-0 running Monocryl and Dermabond. Head incision was dressed with Xeroform and gauze. Patien t tolerated procedure well. All impedances were good and there were no complications. FLUIDS: 400 mL crystalloid. URINE OUTPUT: None. DRAINS: None. COMPLICATIONS: None. /[id number]/MODL
[2019-01-01] MEDS: fentaNYL 100 MCG/2 ML INJ IVP PRN ×6 (09:05→10:00)
[2019-01-01] MEDS ORDERED: PROMETHAZINE HCL 25 MG/ML INJ ONE (10:59)
[2019-01-01] MEDS ORDERED: PROMETHAZINE HCL 25 MG/ML INJ IV ONE (11:15)
[2019-01-01 13:31] VITALS: BP 138/82
== END 2019-01-01 12:21 | disposition home or self-care (01) ==
LOC: FSGY 05:42
PROVIDERS: ATTEND Neurological Surgery
PROC: 0JH60DZ Insertion of Multiple Array Stimulator Generator into Chest Subcutaneous Tissue and Fascia, Open Approach (ICD-10-PCS; principal; 2019-01-01 07:30)
DX: G20 Parkinson's disease (principal)
CPT/HCPCS: C1787; C1820; C1883; J0690; J1100; J1580; J2370; J2405; J2550; J2704; J3010